=== PATIENT | male | born 1995 | race Caucasian/White ===

== ENCOUNTER 2022-05-23 10:45 | Outpatient (CLI) | payer OTHER ==
--- NOTE | 2022-05-24 13:52 | MRI Report ---
PROCEDURE: Shoulder LT W/O INDICATIONS: PAIN IN LEFT SHOULDER TECHNIQUE: Noncontrast oblique coronal T2 fast spin echo with fat saturation, oblique sagittal T1 spin echo and T2 fast spin echo with fat saturation, axial T1 spin echo and T2 fast spin echo with fat saturation t hrough the shoulder. COMPARISON: None. FINDINGS: Image quality: Excellent. Rotator cuff: Tendinosis and low-grade articular and bursal surface partial-thickness tear involving distal femoral head musculotendinous junction. Distal infraspinatus, and subscapularis tendinosis is seen. No full-thickness rotator cuff tendon rupture. No rotator cuff muscle atrophy on sagittal image s. Bones and bursae: No bone marrow contusions or fractures. No acromioclavicular joint degeneration. The acromion demonstrates conventional anatomy, without an os acromiale. Small amount of subacromial subdeltoid bursal fluid is seen. Capsule and soft tissues: Subtle signal abnormality and contour irregularity involving superior anter ior labrum at 12 to 1:00 position is seen suggestive of subtle superior anterior labral tear. Degener ative changes are noted throughout inferior labrum with suggestion of subtle anterior inferior labral tear at 5 to 6:00 position. The long head of the biceps tendinosis and low-grade intrasubstance part ial thickness tear is seen. The rotator interval appears normal, without fibrosis. The coracohumera l ligament is normal in thickness. IMPRESSION: 1. Tendinosis and low-grade articular and bursal surface partial-thickness tear involving distal supr aspinatus extending to musculotendinous junction. Distal infraspinatus and subscapularis tendinosis. No full-thickness rotator cuff tendon rupture. 2. No marrow edema. No fracture or dislocation. Small amount of subacromial subdeltoid bursal fluid. 3. Suggestion of subtle superior anterior labral tear at 12 to 1:00 position an anterior inferior lab ral tear at 5-6 o'clock. 4. Tendinosis and low-grade intrasubstance partial thickness tear involving proximal intra-articular portion of long head of biceps. Reviewed by: Jefferson Lopez MD on 05/24/2022 12:50 PM [facility] Approved by: Jefferson Lopez MD on 05/24/2022 12:50 PM [facility] Station ID: [id number]
== END 2022-05-23 10:46 | disposition home or self-care (01) ==
LOC: DI 10:45
PROVIDERS: ATTEND Internal Medicine
DX: M75.112 Incomplete rotator cuff tear or rupture of left shoulder, not specified as traumatic (principal); S46.112A Strain of muscle, fascia and tendon of long head of biceps, left arm, initial encounter